=== PATIENT | male | born 1940 | race Asian ===

== ENCOUNTER 2017-09-03 14:40 | Emergency (ER) | payer OTHER ==
[~2017-09-03] VITALS: Ht 177.8 cm; Wt 72.6 kg
[2017-09-03 15:00] VITALS: BP 146/68
[2017-09-03] MEDS ORDERED: TETANUS-DIPTH-ACEL PERTUSSIS 0.5ML SYRG IM ONE (18:30)
[2017-09-03] MEDS ORDERED: NEOMYCIN-BACITRACIN-POLYM UNITDOSE PKG TOP OINT TOP ONE (18:30)
== END 2017-09-03 19:06 | disposition home or self-care (01) ==
LOC: ER 14:40
DX: T25.222A Burn of second degree of left foot, initial encounter (principal); X10.0XXA Contact with hot drinks, initial encounter; Y93.89 Activity, other specified; Y92.89 Other specified places as the place of occurrence of the external cause; Y99.8 Other external cause status
CPT/HCPCS: 16020; 90471; 90715